=== PATIENT | female | born 1985 | race Caucasian/White ===

== ENCOUNTER 2020-01-01 12:56 | Outpatient (CLI) | payer MEDICAID, SELFPAY ==
--- NOTE | 2020-01-01 14:00 | XRR_ITS ---
PROCEDURE INFORMATION: Exam: XR Abdomen, 1 View Exam date and time: 01/01/2020 1:07 PM Age: 34 years old Clinical indication: Condition or disease; Kidney or ureter condition; Calculus (stone) in ureter; Prior surgery; Surgery date: 6+ months; Surgery type: Gb. Tubal; Patient HX: Follow up kidney stone; Additional info: Ureteral stone TECHNIQUE: Imaging protocol: XR of the abdomen. Views: Frontal supine view of the abdomen. 1 View. COMPARISON: CR XR KUB [id number] 11/30/2017 10:01 AM FINDINGS: Gastrointestinal tract: Normal. No bowel dilation. Significant colonic fecal stasis is seen in the ascending transverse and sigmoid colon. Evidence of cholecystectomy is seen with metallic clips right upper quadrant. Intraperitoneal space: Metallic surgical clips seen in the pelvis corresponding to tubal ligation. Bones/joints: Unremarkable. XR/XR KUB [id number] IMPRESSION: 1. No acute GI abnormality. 2. Status post cholecystectomy, and tubal ligation. 3. Colonic fecal stasis as described
== END 2020-01-01 12:57 | disposition home or self-care (01) ==
LOC: RAD 12:56
PROVIDERS: PCP General Practice; Visit Provider Urology
DX: N20.1 Calculus of ureter (principal); K59.8 Other specified functional intestinal disorders
CPT/HCPCS: 74018; 81001

== ENCOUNTER 2021-03-01 10:00 | Emergency (ER) | payer MEDICAID, SELFPAY ==
[2021-03-01 10:15] VITALS: BP 125/88; PULSE 93; RESP 28; TEMP 36.3; O2SAT 100; BMI 29.1
--- NOTE | 2021-03-01 10:37 | XRR_ITS ---
PROCEDURE INFORMATION: Exam: XR Chest Exam date and time: 03/01/2021 10:37 AM Age: 35 years old Clinical indication: Pain; Angina pectoris; Additional info: Cp TECHNIQUE: Imaging protocol: XR of the chest. Views: 1 view. COMPARISON: CR XR KUB [id number] 01/01/2020 1:05 PM FINDINGS: Lungs: Unremarkable. No consolidation. Pleural spaces: Unremarkable. No pleural effusion. No pneumothorax. Heart/Mediastinum: Unremarkable. No cardiomegaly. Bones/joints: Unremarkable. XR/XR chest 1V portable [id number] IMPRESSION: No acute findings. Radiation Dose CTDIVOL = (mGy): DLP = (mGy-cm)
--- NOTE | 2021-03-01 10:37 | ECG_ITS ---
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
--- NOTE | 2021-03-01 10:38 | ED_ITS ---
Documented by User: JESUS Huff 03/01/21 14:15 HPI - Chest Pain General: Chief Complaint: Chest Pain Stated Complaint: CP, PAIN DOWN L ARM, SOB, NAUSEA Time Seen by Provider: 03/01/21 10:31 History of Present Illness: HPI narrative: Patient presents from the [facility] with a 4-day history of reflux severe chronic with resulting chest discomfort. Patient states that she hurts all over and was tested for Covid today and that test was negative at the clinic. Patient says she has had some chills patient states that her chest pain is worse with deep inspiration and that she has had a cough also. MD complaint: chest discomfort Pertinent past history: other (Severe reflux and gallbladder removal, anxiety) Onset (ago): day(s) Timing of current episode: episodic and increasing Prior episodes: Yes Pain location: other (Epigastric) Severity: moderate Quality: sharp Exacerbating factors: palpation Context: recent illness Associated symptoms: Reports nausea and vomiting; Deny dyspnea or fever(s) Review of Systems Const: Reports: chills and body aches; Denies: fever(s) Eyes: Denies: change in vision or blurry vision ENMT: Denies: throat pain or nasal congestion Card: Denies: chest pain or dyspnea on exertion Resp: Reports: non-productive cough; Denies: dyspnea or productive cough GI: Reports: nausea, vomiting and heartburn Musc: Denies: extremity pain Skin/Breast: Denies: rash Neuro: Denies: headache(s) Psych: Denies: anxiety or depression Low/Lymph: Denies: easy bruising PFSH ED PFSH: Family History Father COPD (chronic obstructive pulmonary disease) Emphysema lung Arthritis Mother Hypertension Gout Social History Smoking and tobacco status: current every day smoker Alcohol intake: current Alcohol intake frequency: holidays/special occasions only Marital status: Life Partner Current occupational status: disabled Female Reproductive History: Date of last menstrual period: 02/17/21 Physical Exam Const: COMMON NORMALS: no acute distress, average body habitus and patient oriented x3 HENMT: COMMON NORMALS: normocephalic HEAD & SCALP: normal to inspection and normocephalic FACE & SINUS: normal facial exam Eye: COMMON NORMALS: conjunctivae normal GENERAL EYE: appearance normal, both eyes and all related structures CONJUNCTIVA: Yes conjunctivae normal Neck/C-Spine: COMMON NORMALS: no JVD Chest: COMMONS NORMALS: normal inspection of the chest Resp: COMMON NORMALS: normal respiratory effort and clear to auscultation bilaterally AUSCULTATION: clear to auscultation bilaterally Cardio: COMMON NORMALS: no JVD, regular rate and regular rhythm RATE: regular rate RHYTHM: regular rhythm GI: INSPECTION: Yes normal to inspection AUSCULTATION: Yes normoactive bowel sounds PALPATION: Yes Tenderness to palpation present (GI) (Upper epigastric) Extremity: COMMON NORMALS: normal to inspection and full ROM Neuro: COMMON NORMALS: patient oriented x3 Course Vital Signs: Vital signs: Vital Signs Temperature 97.4 F L 03/01/21 14:33 Pulse Rate 88 03/01/21 14:33 Respiratory Rate 28 H 03/01/21 14:33 Blood Pressure 125/88 03/01/21 10:15 Pulse Oximetry 100 03/01/21 14:33 MDM - Chest Pain MDM Narrative: Medical decision making narrative: Patient presents from [facility] with 4-day history of upper epigastric pain with cough. Patient wa s tested and found negative Covid member in clinic today. Patient's describes her pain as tenderness to her mid epigastric area with a history of chronic reflux not very well controlled. Patient says pain moves up into the left arm also. Laboratory studies negative and radiology studies negative for concerns. Patient was given GI cocktail with moderate relief and also Carafate later in the visit. I explained to patient [id number] medications, diet, physiological measuring take to help take care of reflux. Patient encouraged follow-up primary care provider. Case was discussed with Dr. Carr care turned over to him. Lab Data: Labs: Lab Results 03/01/21 03/01/21 03/01/21 10:55 10:55 10:55 WBC 7.9 10^3/uL 10^3/ uL (4.0-10.0) RBC 5.01 10^6/uL 10^6 /uL (4.1-5.3) Hgb 15.0 g/dL g/dL (11.5-15.3) Hct 45.0 % % (37.0-47.0) MCV 89.8 fl fl (81-99) MCH 29.9 pg pg (28.0-34.0) MCHC 33.3 g/dL g/dL (30.0-36.0) RDW 11.9 % L % (12.1-15.1) Plt Count 257 10^3/cmm 10^3 /cmm (130-400) MPV 11.4 fL H fL (7.4-10.4) Neut % (Auto) 66.8 % % Lymph % (Auto) 24.7 % % Alpine % (Auto) 7.6 % % Eos % (Auto) 0.1 % % Baso % (Auto) 0.5 % % Neut # (Auto) 5.28 10^3/uL 10^3 /uL (1.8-7.7) Lymph # (Auto) 2.0 10^3/uL 10^3/ uL (0.8-4.8) Alpine # (Auto) 0.6 10^3/uL 10^3/ uL (0.2-0.9) Eos # (Auto) 0.0 10^3/uL 10^3/ uL (0.0-0.8) Baso # (Auto) 0.0 10^3/uL 10^3/ uL (0.0-0.1) Nucleated RBC % (a uto) 0 % % Nucleated RBCs # 0.0 /100WBC /100W BC D-Dimer Sodium 139 mmol/L mmol/L (136-145) Potassium 3.7 mmol/L mmol/L (3.5-5.1) Chloride 105 mmol/L mmol/L (98-107) Carbon Dioxide 19 mmol/L L mmol/ L (22-29) Anion Gap 18.7 (5-19) BUN 9 mg/dL mg/dL (6-20) Creatinine 0.5 mg/dL mg/dL (0.5-0.9) GFR Calculation 141.2 mL/min H mL /min (90-130) Glucose 81 mg/dL mg/dL (65-115) Calculated Osmolal ity 286 mOsm/kg mOsm/ kg (285-295) Calcium 9.5 mg/dL mg/dL (8.5-10.5) Total Bilirubin 0.4 mg/dL mg/dL (0.15-1.2) AST 16 U/L U/L (0-32) ALT 15 U/L U/L (0-33) Alkaline Phosphata se 83 IU/L IU/L (35-105) Troponin T Baselin e 6 ng/L ng/L (0-10) Troponin T 120 Min [place] Troponin T Total Protein 6.9 g/dL g/dL (6.6-8.7) Albumin 4.4 g/dL g/dL (3.5-5.2) Globulin 2.5 g/dL g/dL (1.3-4.6) 03/01/21 03/01/21 10:55 12:56 WBC RBC Hgb Hct MCV MCH MCHC RDW Plt Count MPV Neut % (Auto) Lymph % (Auto) Alpine % (Auto) Eos % (Auto) Baso % (Auto) Neut # (Auto) Lymph # (Auto) Alpine # (Auto) Eos # (Auto) Baso # (Auto) Nucleated RBC % (a uto) Nucleated RBCs # D-Dimer 0.42 ug/mIFEU ug/ mIFEU (0-0.59) Sodium Potassium Chloride Carbon Dioxide Anion Gap BUN Creatinine GFR Calculation Glucose Calculated Osmolal ity Calcium Total Bilirubin AST ALT Alkaline Phosphata se Troponin T Baselin e Troponin T 120 Min [place] 6.00 ng/L ng/L (0-10) Delta Troponin T 0 ABS# ABS# (0-10) Total Protein Albumin Globulin Discharge Plan Discharge Patient Disposition: Home Clinical Impression: Atypical chest pain, Chest pain due to GERD Condition: Stable Prescriptions: New Carafate 1 gram tablet 1 g PO TID 14 Days Qty: 42 RF: 0 No Action levetiracetam [Keppra] 500 mg tablet 1,000 mg PO BID RF: 0 pantoprazole [Protonix] 40 mg tablet,delayed release (DR/EC) 40 mg PO BID RF: 0 quetiapine [Seroquel] 400 mg tablet 400 mg PO DAILY RF: 0 clonazepam 0.5 mg tablet 0.5 mg PO DAILY RF: 0 doxepin 75 mg capsule 75 mg PO DAILY RF: 0 albuterol sulfate [ProAir HFA] 90 mcg/actuation HFA aerosol inhaler 2 puff INHALATION Q6H PRNRF: 0 fluticasone propion-salmeterol [Advair Diskus] 250-50 mcg/dose blister with device 1 inh INHALATION BID RF: 0 Discharge Orders: Discharge ED (Routine); Ordered 03/01/21 Ordered By: Jerry Oakes Discharge Diet: As Directed Discharge Activity: Resume usual activity Patient Instructions: GERD (Gastroesophageal Reflux Disease) (ED) Activity Restrictions/Additional Instructions: Follow-up with medical provider as directed. Take medications as prescribed. Return to the ER or your medical provider if condition worsens. Please read and understand discharge instructions. If any questions ask please. Elevate head of bed with risers. Sleep sitting up in a chair for next week or 2 if possible. Modify diet to make sure you do not have foods that worsen your reflux. Can take [id number] Tagamet, Maalox or Mylanta along with other medications that have been prescribed. Coding Level of Care Code ED Interactive Project Manager for Chg Fwd Exam Comprehensive Documented by User: Robin Silvestre DO 03/02/21 06:53 HPI - Chest Pain General: Chief Complaint: Chest Pain Stated Complaint: CP, PAIN DOWN L ARM, SOB, NAUSEA Time Seen by Provider: 03/01/21 10:31 PFSH ED PFSH: Family History Father COPD (chronic obstructive pulmonary disease) Emphysema lung Arthritis Mother Hypertension Gout Social History Smoking and tobacco status: current every day smoker Alcohol intake: current Alcohol intake frequency: holidays/special occasions only Marital status: Life Partner Current occupational status: disabled Course Vital Signs: Vital signs: Vital Signs Temperature 97.4 F L 03/01/21 14:33 Pulse Rate 88 03/01/21 14:33 Respiratory Rate 28 H 03/01/21 14:33 Blood Pressure 125/88 03/01/21 10:15 Pulse Oximetry 100 03/01/21 14:33 MDM - Chest Pain MDM Narrative: Medical decision making narrative: Case reviewed discussed with Violette. I agree with his assessment and plan. Patient discharged with plan as outlined below. Lab Data: Labs: Lab Results 03/01/21 03/01/21 03/01/21 10:55 10:55 10:55 WBC 7.9 10^3/uL 10^3/ uL (4.0-10.0) RBC 5.01 10^6/uL 10^6 /uL (4.1-5.3) Hgb 15.0 g/dL g/dL (11.5-15.3) Hct 45.0 % % (37.0-47.0) MCV 89.8 fl fl (81-99) MCH 29.9 pg pg (28.0-34.0) MCHC 33.3 g/dL g/dL (30.0-36.0) RDW 11.9 % L % (12.1-15.1) Plt Count 257 10^3/cmm 10^3 /cmm (130-400) MPV 11.4 fL H fL (7.4-10.4) Neut % (Auto) 66.8 % % Lymph % (Auto) 24.7 % % [place] % (Auto) 7.6 % % Eos % (Auto) 0.1 % % Baso % (Auto) 0.5 % % Neut # (Auto) 5.28 10^3/uL 10^3 /uL (1.8-7.7) Lymph # (Auto) 2.0 10^3/uL 10^3/ uL (0.8-4.8) Alpine # (Auto) 0.6 10^3/uL 10^3/ uL (0.2-0.9) Eos # (Auto) 0.0 10^3/uL 10^3/ uL (0.0-0.8) Baso # (Auto) 0.0 10^3/uL 10^3/ uL (0.0-0.1) Nucleated RBC % (a uto) 0 % % Nucleated RBCs # 0.0 /100WBC /100W BC D-Dimer Sodium 139 mmol/L mmol/L (136-145) Potassium 3.7 mmol/L mmol/L (3.5-5.1) Chloride 105 mmol/L mmol/L (98-107) Carbon Dioxide 19 mmol/L L mmol/ L (22-29) Anion Gap 18.7 (5-19) BUN 9 mg/dL mg/dL (6-20) Creatinine 0.5 mg/dL mg/dL (0.5-0.9) GFR Calculation 141.2 mL/min H mL /min (90-130) Glucose 81 mg/dL mg/dL (65-115) Calculated Osmolal ity 286 mOsm/kg mOsm/ kg (285-295) Calcium 9.5 mg/dL mg/dL (8.5-10.5) Total Bilirubin 0.4 mg/dL mg/dL (0.15-1.2) AST 16 U/L U/L (0-32) ALT 15 U/L U/L (0-33) Alkaline Phosphata se 83 IU/L IU/L (35-105) Troponin T Baselin e 6 ng/L ng/L (0-10) Troponin T 120 Min [place] Troponin T Total Protein 6.9 g/dL g/dL (6.6-8.7) Albumin 4.4 g/dL g/dL (3.5-5.2) Globulin 2.5 g/dL g/dL (1.3-4.6) 03/01/21 03/01/21 10:55 12:56 WBC RBC Hgb Hct MCV MCH MCHC RDW Plt Count MPV Neut % (Auto) Lymph % (Auto) [place] % (Auto) Eos % (Auto) Baso % (Auto) Neut # (Auto) Lymph # (Auto) [place] # (Auto) Eos # (Auto) Baso # (Auto) Nucleated RBC % (a uto) Nucleated RBCs # D-Dimer 0.42 ug/mIFEU ug/ mIFEU (0-0.59) Sodium Potassium Chloride Carbon Dioxide Anion Gap BUN Creatinine GFR Calculation Glucose Calculated Osmolal ity Calcium Total Bilirubin AST ALT Alkaline Phosphata se Troponin T Baselin e Troponin T 120 Min [place] 6.00 ng/L ng/L (0-10) Delta Troponin T 0 ABS# ABS# (0-10) Total Protein Albumin Globulin Discharge Plan Discharge Patient Disposition: Home Clinical Impression: Atypical chest pain, Chest pain due to GERD Condition: Stable Prescriptions: New Carafate 1 gram tablet 1 g PO TID 14 Days Qty: 42 RF: 0 No Action levetiracetam [Keppra] 500 mg tablet 1,000 mg PO BID RF: 0 pantoprazole [Protonix] 40 mg tablet,delayed release (DR/EC) 40 mg PO BID RF: 0 quetiapine [Seroquel] 400 mg tablet 400 mg PO DAILY RF: 0 clonazepam 0.5 mg tablet 0.5 mg PO DAILY RF: 0 doxepin 75 mg capsule 75 mg PO DAILY RF: 0 albuterol sulfate [ProAir HFA] 90 mcg/actuation HFA aerosol inhaler 2 puff INHALATION Q6H PRNRF: 0 fluticasone propion-salmeterol [Advair Diskus] 250-50 mcg/dose blister with device 1 inh INHALATION BID RF: 0 Discharge Orders: Discharge ED (Routine); Ordered 03/01/21 Ordered By: Jerry Oakes Discharge Diet: As Directed Discharge Activity: Resume usual activity Patient Instructions: GERD (Gastroesophageal Reflux Disease) (ED) Activity Restrictions/Additional Instructions: Follow-up with medical provider as directed. Take medications as prescribed. Return to the ER or your medical provider if condition worsens. Please read and understand discharge instructions. If any questions ask please. Elevate head of bed with risers. Sleep sitting up in a chair for next week or 2 if possible. Modify diet to make sure you do not have foods that worsen your reflux. Can take tanz-ksw-gayvdon Tagamet, Maalox or Mylanta along with other medications that have been prescribed. Coding Level of Care Code ED Interactive Project Manager for José Luis Fwd Exam Comprehensive
[2021-03-01 11:04] LABS: Basophils % 0.5 %; Eosinophils % 0.1 %; Lymphocytes % 24.7 %; Mean Corpuscular HGB Conc 33.3 g/dL (30.0-36.0); Mean Corpuscular Hemoglobin 29.9 pg (28.0-34.0); Mean Corpuscular Volume 89.8 fl (81-99); Mean Platelet Volume 11.4 fL (7.4-10.4); Monocytes # 0.6 10^3/uL (0.2-0.9); Monocytes % 7.6 %; Neutrophils # 5.28 10^3/uL (1.8-7.7); Neutrophils % 66.8 %; Nucleated Red Blood Cells % 0 %; Platelet Count 257 10^3/cmm (130-400); Red Blood Count 5.01 10^6/uL (4.1-5.3); Red Cell Distribution Width 11.9 % (12.1-15.1); White Blood Count 7.9 10^3/uL (4.0-10.0)
[2021-03-01] MEDS: sodium chloride 0.9% 500 ML 999 ML IV (11:08)
[2021-03-01] MEDS: lidocaine 2% viscous 15 ML, aluminum-mag hydrox-simethicon 30 ML, sucralfate oral liq 1 GM PO (11:09)
[2021-03-01 11:27] LABS: Alanine Aminotransferase 15 U/L (0-33); Albumin Level 4.4 g/dL (3.5-5.2); Alkaline Phosphatase 83 IU/L (35-105); Aspartate Amino Transferase 16 U/L (0-32); Blood Urea Nitrogen 9 mg/dL (6-20); Calcium 9.5 mg/dL (8.5-10.5); Carbon Dioxide 19 mmol/L (22-29); Chloride 105 mmol/L (98-107); Globulin 2.5 g/dL (1.3-4.6); Glomerular Filtration Rate 141.2 mL/min (90-130); Glucose 81 mg/dL (65-115); Osmolality Calculated 286 mOsm/kg (285-295); Sodium 139 mmol/L (136-145); Total Bilirubin 0.4 mg/dL (0.15-1.2); Total Protein 6.9 g/dL (6.6-8.7)
[2021-03-01 11:29] LABS: Troponin(5th) Baseline 6 ng/L (0-10)
[2021-03-01 11:31] LABS: Anion Gap 18.7 (5-19); Potassium 3.7 mmol/L (3.5-5.1)
[2021-03-01] MEDS: morphine 4 mg/mL SDV 1 mL 2 MG IVP (12:06)
[2021-03-01] MEDS: ondansetron 2 mg/ML SDV 2 mL 8 MG IVP (12:06)
[2021-03-01 13:34] LABS: Troponin 5 2HR Delta 0 ABS# (0-10)
[2021-03-01 14:02] LABS: D Dimer 0.42 ug/mIFEU (0-0.59)
[2021-03-01] MEDS: sucralfate 1 gm Tablet PO (14:02)
[2021-03-01 14:33] VITALS: PULSE 88; RESP 28; TEMP 36.3; O2SAT 100
--- NOTE | 2021-03-01 16:37 | ECG_ITS ---
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
== END 2021-03-01 14:33 | disposition home or self-care (01) ==
PROVIDERS: Emergency Provider Nurse Practitioner Family
DX: R07.89 Other chest pain (principal); K21.9 Gastro-esophageal reflux disease without esophagitis; F17.210 Nicotine dependence, cigarettes, uncomplicated
CPT/HCPCS: 71045; 80053; 84484; 85025; 85378; 93005; 96374; 96375; 99284; J2270; J2405; J7040